=== PATIENT | female | born 1980 | race Two or more races ===

== ENCOUNTER 2018-06-29 08:11 | Emergency (ER) | payer BC, OTHER ==
[~2018-06-29] VITALS: Ht 157.5 cm; Wt 68.0 kg
[~2018-06-29 08:11] MED LIST: PREN-96 PO
[2018-06-29 08:26] VITALS: BP 122/46
[2018-06-29] MEDS ORDERED: HYDROcodone-ACET 7.5/325MG TAB PO ONE (08:45)
[2018-06-29] MEDS ORDERED: KETOROLAC TROMETH 60MG/2ML VIAL IM ONE (08:45)
[2018-06-29] MEDS ORDERED: ALPRAZolam 0.5 MG TAB PO ONE (09:15)
== END 2018-06-29 10:02 | disposition home or self-care (01) ==
LOC: ER 08:20
DX: M54.41 Lumbago with sciatica, right side (principal)
CPT/HCPCS: 96372; 99283; J1885

== ENCOUNTER 2024-01-31 17:54 | Emergency (ER) | payer BC, OTHER ==
[~2024-01-31] VITALS: Ht 157.5 cm; Wt 72.6 kg
[2024-01-31] MEDS ORDERED: DIPH25CA66 PO (19:03)
[2024-01-31] MEDS ORDERED: HYDR-3682 PO (19:03)
--- NOTE | 2024-01-31 19:04 | ED.PDOC ---
HPI Allergic reaction HPI Comments This patient is a pleasant 43-year-old female who arrives to the ED today for evaluation of a rash that is form in her face and neck that began earlier today and has continued. Patient states she has a history of allergic responses to some unknown concerns. Patient has had facial rash and neck rashes swelling in the past. Patient denies any oral or airway involvement. Patient's stated that a few days ago she noticed a small red dot under her left eye. Patient thinks that that may have been responsible for the continued rash. Patient denies any fever nausea or vomiting. Vital signs were stable on arrival. Chief Complaint: Rash Time Seen by MD: 18:50 Primary Care Provider: DR HERRERA Reviewed Notes: Nurses Notes Allergies: Coded Allergies: NO KNOWN ALLERGIES (Unverified , 03/15/12) Home Meds Reported Medications Vit W/ Ferrous Fumara ( One Daily) Daily Tab, 1 TAB PO DAILY, #90 TAB 3 Refills 12/24/13 Information Source: Patient Mode of Arrival: Ambulatory Severity: Moderate Rash: Moderate SOB: None Difficulty swallowing: None Pruritus: Moderate Timing: Days Duration: Since onset Prehospital treatment: None Location: Chest, Face Exposed to: Unknown Modyifying Factors: Diphenhydramine Past Medical History PAST MEDICAL HISTORY: Anemia Past Medical History (Other): Recent history of allergic dermatitis 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 Family History Family History: No family hx of HTN Social History Smoker: Non-Smoker Alcohol: Denies ETOH Use Drugs: Denies Drug Use Lives In: Home Constitutional: denies: chills, diaphoresis, fatigue, fever, malaise, sweats, weakness, others EENTM: denies: blurred vision, double vision, ear bleeding, ear discharge, ear drainage, ear pain, ear ringing, eye pain, eye redness, hearing loss, mouth pain, mouth swelling, nasal discharge, nose bleeding, nose congestion, nose pain, photophobia, tearing, throat pain, throat swelling, voice changes, others Respiratory: denies: cough, hemoptysis, orthopnea, SOB at rest, shortness of breath, SOB with excertion, stridor, wheezing, others Cardiovascular: denies: chest pain, dizzy spells, diaphoresis, Dyspnea on exertion, edema, irregular heart beat, left arm pain, lightheadedness, palpitations, PND, syncope, others Gastrointestinal: denies: abdomen distended, abdominal pain, blood streaked bowels, constipated, diarrhea, dysphagia, difficulty swallowing, hematemesis, melena, nausea, poor appetite, poor fluid intake, rectal bleeding, rectal pain, vomiting, others Genitourinary: denies: abnormal vagina bleeding, burning, dyspareunia, dysuria, flank pain, frequency, hematuria, incontinence, pain, , vagina discharge, urgency, others Neurological: denies: dizziness, fainting, headache, left sided numbness, left sided weakness, numbness, paresthesia, pre-existing deficit, right sided numbness, right sided weakness, seizure, speech problems, tingling, tremors, weakness, others Musculoskeletal: denies: back pain, gout, joint pain, joint swelling, muscle pain, muscle stiffness, neck pain, others Integumetry: reports: rash (Rash to face and neck); denies: bruises, change in color, change in hair/nails, dryness, laceration, lesions, lumps, wounds, others Allergic/Immunocompromised: denies: Difficulty Healing, Frequent Infections, Hives, Itching, others Hematologic/Lymphatic: denies: anemia, blood clots, easy bleeding, easy bruising, swollen glands, others Endocrine: denies: excessive hunger, excessive sweating, excessive thirst, excessive urination, flushing, intolerance to cold, intolerance to heat, unexplained weight gain, unexplained weight loss, others Psychiatric: denies: anxiety, bipolar disorder, depression, hopeless, panic disorder, schizophrenia, sleepless, suicidal, others Physical Exam General Appearance: Moderate Distress (Fpkj-pk-fhtjradj distress due to itching concerns related to the rash as well as anxiety.), Normal HEENT: Normal ENT Inspection, Pharynx Normal, TMs Normal Neck: Full Range of Motion, Non-Tender, Normal, Normal Inspection Respiratory: Chest Non-Tender, Lungs Clear, No Accessory Muscle Use, No Respira tory Distress, Normal Breath Sounds Cardiovascular: No Edema, No JVD, No Murmur, No Gallop, Normal Peripheral Pulses, Regular Rate/Rhythm Breast Exam: Deferred Gastrointestinal: No Organomegaly, Non Tender, No Pulsatile Mass, Normal Bowel Sounds, Soft Genitalia: Deferred Pelvic: Deferred Rectal: Deferred Extremities: No calf tenderness, Normal capillary refill, Normal inspection, Normal range of motion, Non-tender, No pedal edema Neurologic: Alert, skate hop II-XII nml as Tested, No Motor Deficits, Normal Affect, Normal Mood, No Sensory Deficits Cerebellar Function: Normal Reflexes: Normal Skin: Other (Patient displays a fojh-di-odtiwkxz sandpaper like rash to her face under her bilateral eyes and extending down her face into her neck region. No airway involvement. No oral involvement. Localized erythema related to the rash without edema. No sign of infection.) Lymphatic: No Adenopathy Was a procedure done? Was a procedure done?: No Differential diagnosis (all) Differential Diagnosis: Anaphylaxis, Angioedema, Contact Dermatitis, Drug Reaction, Urticaria X-Ray, Labs, Meds, VS Vital Signs Date Time Temp Pulse Resp B/P (MAP) Pulse Ox O2 Delivery O2 Flow Rate FiO2 01/31/24 18:02 98.7 67 18 120/64 (82) 96 X-Ray, Labs, Meds, VS Comment Advised patient that she has some unfortunate hypersensitivity to but could be environmental, food, make-up or cleaning products just to name a few. Patient was scheduled to see her primary care provider one week and I have advised her to request a internet database specialist referral and evaluation to aid her as she has states that she has had more frequent similar events over the past year. 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 Patient has been advised to maintain follow up appointment with her doctor and has been advised to request a internet database specialist referral as her symptoms do not seem to be going away. e-Prescriptions Hydroxyzine Hcl (Hydroxyzine Hcl) 25 Mg Tab 1 TAB PO TID, #20 TAB Prov: SHERICE CARCAMO PAC 01/31/24 Diphenhydramine Hcl (Benadryl Allergy) 25 Mg Cap 25 MG PO Q6HP PRN, #20 CAP Prov: SHERICE CARCAMO PAC 01/31/24 Discharged With: Self, Friend Critical Care Note Critical Care Time?: No Stability Stability form required: No Heart Score Heart Score: Heart Score Response (Comments) Value History N/A 0 EKG N/A 0 Age N/A 0 Risk Factors N/A 0 Troponin N/A 0 Total 0 SHERICE CARCAMO PAC Jan 31, 2024 19:04
[2024-01-31] MEDS: diphenhdrAMINE HCL 25 MG CAP PO ONE (23:54)
[2024-01-31] MEDS: KETOROLAC TROMETH 60MG/2ML VIAL IM ONE (23:54)
[2024-01-31] MEDS: DexAMETHasone SOD PHOS 10MG/1ML VIAL INJ IM ONE (23:54)
[2024-02-01] VITALS: BP 124/82; PULSE 82; RESP 18; TEMP 98.1; O2SAT 98
== END 2024-01-31 19:07 | disposition home or self-care (01) ==
LOC: ER 17:54
DX: T78.40XA Allergy, unspecified, initial encounter (principal); Z87.59 Personal history of other complications of pregnancy, childbirth and the puerperium; X58.XXXA Exposure to other specified factors, initial encounter
CPT/HCPCS: 96372; 99284; J1100; J1885

== ENCOUNTER 2024-10-14 00:31 | Emergency (ER) | payer OTHER ==
[~2024-10-14] VITALS: Ht 157.5 cm; Wt 70.5 kg
[~2024-10-14 00:31] MED LIST changes: +DIPH25CA66 PO; +HYDR-3682 PO
[2024-10-14 01:25] LABS: Hematocrit 41.1 % (36.0-46.0); Hemoglobin 14.0 g/dL (12.2-16.2); Mean Corpuscular Hemoglobin 29.6 pg (28.0-32.0); Mean Corpuscular Volume 86.7 fL (80.0-100.0); Nucleated Red Blood Cells % 0.0 %
[2024-10-14 01:37] LABS: Chloride 106 mmol/L (98-107); Potassium 3.6 mmol/L (3.5-5.1); Sodium 140 mmol/L (136-145)
[2024-10-14 01:38] LABS: Anion Gap 10 (5-15); Calcium 9.2 mg/dL (8.7-10.4); Carbon Dioxide 24 mmol/L (20-31)
[2024-10-14 01:43] LABS: BUN/Creatinine Ratio 25.8 (10.0-20.0); Blood Urea Nitrogen 16 mg/dL (9-23)
[2024-10-14 01:47] LABS: Glucose 111 mg/dL (74-106)
[2024-10-14 01:55] LABS: Urine Protein, UAD Negative (Negative)
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
--- NOTE | 2024-10-14 02:52 | DVH ---
Exam: CT CT AB PEL WO CON-NO ORAL OR IV History: Right flank pain Comparison Study: None TECHNIQUE: Multidetector CT of the abdomen and pelvis was performed from lung bases to pubic symphysi s. Imaging was performed without IV contrast. Axial, coronal and sagittal multiplanar reformats were obtained from the axial data set by the technologist. Radiation optimization: All CT scans at this facility use at least one of these dose optimization thias hniques: automated exposure control mA and/or kV adjustment per patient size (includes targeted exam s where dose is matched to clinical indication) or iterative reconstruction. Radiation Dose Information: CT Dose: CTDI volume is 6.11 mGy. Dose-length product is 331.26 mGy*cm FINDINGS: Evaluation of solid organs is limited due to lack of intravenous contrast use. Imaged portions of the lung bases demonstrate small right pleural effusion. Possible small hiatal her mone. The liver, gallbladder, spleen, pancreas and adrenal glands appear unremarkable. The kidneys neema ear symmetric without hydronephrosis. The right ureter is difficult to follow given postsurgical scott ges bilaterally and multiple phleboliths in the pelvis. However no discrete evidence of hydroureter o r obstructing calculus. The urinary bladder appears unremarkable. The uterus is retroverted. There i s no free fluid, free air, or adenopathy. No suspicious osseous lesion. IMPRESSION: 1. No acute abdominal or pelvic finding. 2. Right ureter difficult to track throughout its entirety given postsurgical changes, however no dis crete evidence of hydroureter or hydronephrosis to suggest obstruction.
[2024-10-14] MEDS ORDERED: IBUP-1454 PO (02:59)
[2024-10-14] MEDS ORDERED: ACET650T12 PO (02:59)
[2024-10-14] MEDS: ACETAMINOPHEN 325 MG TAB PO ONE (05:21)
[2024-10-14] MEDS: KETOROLAC TROMETH 30 MG/ML 1ML VIAL IM ONE (05:22)
[2024-10-14 05:25] VITALS: BP 118/70; PULSE 55; RESP 20; TEMP 97.4; O2SAT 99
== END 2024-10-14 05:35 | disposition home or self-care (01) ==
LOC: ER 00:31
DX: N39.0 Urinary tract infection, site not specified (principal); D64.9 Anemia, unspecified; Z87.59 Personal history of other complications of pregnancy, childbirth and the puerperium; Z90.710 Acquired absence of both cervix and uterus; Z90.79 Acquired absence of other genital organ(s); Z79.899 Other long term (current) drug therapy
CPT/HCPCS: 36415; 74176; 80048; 81001; 81025; 85025; 96372; 99285; J1885